=== PATIENT | female | born 1975 | race American Indian/Alaskan Native ===

== ENCOUNTER 2023-10-07 05:24 | Day surgery (SDC) | payer OTHER ==
[2023-10-07] MEDS ORDERED: fentaNYL 100 MCG/2 ML SDV IV ONE (05:25)
[2023-10-07] MEDS ORDERED: Midazolam 1 MG/ML 2 ML SDV IV ONE (05:25)
[2023-10-07] MEDS: Dextrose 5%-0.45% NaCl 1,000 ML IV SCH (05:53)
[2023-10-07] MEDS ORDERED: fentaNYL 100 MCG/2 ML SDV ONE (06:08)
[2023-10-07] MEDS ORDERED: Midazolam 1 MG/ML 2 ML SDV ONE (06:08)
[2023-10-07] MEDS: fentaNYL 100 MCG/2 ML SDV IV ONE ×2 (06:25→06:26)
[2023-10-07] MEDS: Midazolam 1 MG/ML 2 ML SDV IV ONE ×2 (06:26→06:27)
== END 2023-10-07 08:02 | disposition home or self-care (01) ==
LOC: DL.ENDO 05:24
PROVIDERS: ATTEND Internal Medicine Gastroenterology
DX: K29.50 Unspecified chronic gastritis without bleeding (principal); I10 Essential (primary) hypertension; K21.9 Gastro-esophageal reflux disease without esophagitis; E66.09 Other obesity due to excess calories; Z88.0 Allergy status to penicillin; Z88.1 Allergy status to other antibiotic agents
CPT/HCPCS: 43239; 87077; J2250; J3010; J7799

== ENCOUNTER 2023-10-18 06:22 | Day surgery (SDC) | payer OTHER ==
[~2023-10-18 06:22] MED LIST: Midazolam 1 MG/ML 2 ML SDV ONE; fentaNYL 100 MCG/2 ML SDV ONE
[2023-10-18] MEDS ORDERED: Midazolam 1 MG/ML 2 ML SDV IV ONE (06:23)
[2023-10-18] MEDS ORDERED: fentaNYL 100 MCG/2 ML SDV IV ONE (06:23)
[2023-10-18] MEDS: Dextrose 5%-0.45% NaCl 1,000 ML IV SCH (07:11)
[2023-10-18] MEDS: fentaNYL 100 MCG/2 ML SDV IV ONE ×2 (08:30→08:31)
[2023-10-18] MEDS: Midazolam 1 MG/ML 2 ML SDV IV ONE ×6 (08:31→08:40)
== END 2023-10-18 10:00 | disposition home or self-care (01) ==
LOC: DL.ENDO 06:22
PROVIDERS: ATTEND Internal Medicine Gastroenterology
DX: K52.9 Noninfective gastroenteritis and colitis, unspecified (principal)
CPT/HCPCS: J2250; J3010; J7799